=== PATIENT | female | born 2000 | race African-American/Black ===

== ENCOUNTER 2025-02-06 10:14 | Emergency (ER) | payer MEDICAID ==
[~2025-02-06] VITALS: Ht 167.6 cm; Wt 100.0 kg
[2025-02-06 10:42] VITALS: TEMP 36.6; O2SAT 67
[2025-02-06] MEDS ORDERED: CYCL10TA21 MT (11:06)
[2025-02-06] MEDS ORDERED: KETO10TA2 MT (11:06)
[2025-02-06] MEDS ORDERED: LIDO700A30 TP (11:06)
[2025-02-06] MEDS: CYCLOBENZAPRINE 10MG TABLET PO ONE (11:20)
[2025-02-06] MEDS: KETOROLAC 15MG/ML VIAL IM ONE (11:20)
[2025-02-06] MEDS: LIDOCAINE 5% PATCH TOP STA (11:21)
[2025-02-06 11:46] VITALS: BP 125/76; PULSE 68; RESP 16; O2SAT 100
== END 2025-02-06 11:47 | disposition home or self-care (01) ==
LOC: ER 10:14
DX: M25.562 Pain in left knee (principal); Z79.899 Other long term (current) drug therapy
CPT/HCPCS: 99283; 29505; 81025; 96372; J1885; A6449

== ENCOUNTER 2025-02-24 18:53 | Emergency (ER) | payer MEDICAID ==
[~2025-02-24] VITALS: Ht 167.6 cm; Wt 120.0 kg
[~2025-02-24 18:53] MED LIST: CYCL10TA21 MT; KETO10TA2 MT; LIDO700A30 TP
[2025-02-24 21:31] VITALS: BP 99/50; PULSE 63; RESP 15; TEMP 36.5; O2SAT 98
[2025-02-24] MEDS: ACETAMINOPHEN 500MG TABLET PO ONE (21:36)
[2025-02-24] MEDS ORDERED: NAPR-1176 MT (21:49)
[2025-02-24] MEDS ORDERED: LIDO-53 TP (21:49)
== END 2025-02-24 21:47 | disposition home or self-care (01) ==
LOC: ER 18:53
DX: S90.30XA Contusion of unspecified foot, initial encounter (principal); Z79.1 Long term (current) use of non-steroidal anti-inflammatories (NSAID); X58.XXXA Exposure to other specified factors, initial encounter; Y93.02 Activity, running; Y92.89 Other specified places as the place of occurrence of the external cause; Y99.8 Other external cause status
CPT/HCPCS: 73630; 99283